=== PATIENT | male | born 1975 | race Caucasian/White ===

== ENCOUNTER → 2024-03-13 09:08 | Outpatient (CLI) | payer OTHER, SELFPAY ==
--- NOTE | 2024-03-13 09:13 | DI.RAD.S_ITS ---
PROCEDURE: XR HIP W PEL IF DONE LT 2V INDICATIONS: LEFT HIP PAIN TECHNIQUE: 2 views of the hip were acquired. COMPARISON: None. FINDINGS: Bones: No fractures or dislocations. No suspicious bony lesions. The visualized pelvic ring appears intact. Mild bilateral hip joint space narrowing Soft tissues: No suspicious soft tissue calcifications or masses. Surgical clips in the right lower quadrant IMPRESSION: Mild arthritic joint space narrowing. No fracture or malalignment. Approved by: Jabari Shepherd M.D. on 03/13/2024 at 14:12
== END ==
PROVIDERS: Referring Provider Chiropractor; Visit Provider Chiropractor
DX: S32.302A Unspecified fracture of left ilium, initial encounter for closed fracture (principal); X58.XXXA Exposure to other specified factors, initial encounter
CPT/HCPCS: 73502